=== PATIENT | male | born 1985 | race Caucasian/White ===

== ENCOUNTER → 2021-03-02 | Day surgery (SDC) | payer OTHER ==
[~2021-03-02] MED LIST: CLARITIN10 MG PO; FAMOTIDINE 10 M10 MG PO; PERCOCET 5-3251 EACH PO
--- NOTE | 2021-03-02 19:11 | OP ---
[address] [address] OPERATIVE REPORT Name: ADY VÁZQUEZ Room: [facility].#: [id number] Admission: 03/02/21 Attend Phys: Kevin Novoa Discharge: Date of : 83 Report #: [id number] THIS REPORT FOR: cc: Physician not on staff Physician not on staff Galileo Urias DO ~ DATE OF SURGERY: 03/02/2021 PREOPERATIVE DIAGNOSIS: Pilonidal disease. POSTOPERATIVE DIAGNOSIS: Pilonidal disease. PROCEDURE PERFORMED: Pilonidal cystectomy with Ren lift. SURGEON: Galileo Urias DO CO-SURGEON: Jeremy Jorgensen DO, PGY-5. ANESTHESIA: General. ESTIMATED BLOOD LOSS: 10 mL. SPECIMENS: Pilonidal cyst and pilonidal tract. FINDINGS: pilonidal disease without any evidence of abscess. HISTORY OF PRESENT ILLNESS: The patient is a 35-year-old male with history of pilonidal disease who is seen in the office. He said he has had multiple episodes of recurrent disease. We discussed formal excision in the operating room. Risks, benefits and alternatives discussed at length and he elected to proceed with surgery. DESCRIPTION OF PROCEDURE: After consent was obtained, the patient was taken to the operating room and placed on the prone position with padding in all the correct places. The patient was intubated by the Anesthesia team without any complication prior to prone positioning . SCDs applied to bilateral lower extremities, safety belt placed across the patient's back and legs. Two grams Ancef given for surgical prophylaxis. The gluteal region was prepped and draped in the standard sterile fashion. Time-out was performed confirming the patient and procedure. Pilonidal disease was marked out to plan for surgical excision. A 15 blade scalpel was used to make a ren incision around the pilonidal cyst and the sinus tract off midline to the left. Electrocautery was used for hemostasis and dissected down to the level of the sacral fascia and once the postsacral fascia was encountered, the pilonidal cyst along with the sinus was completely excised and sent for pathologic evaluation. At this point, [place] [address] OPERATIVE REPORT Name: ADY VÁZQUEZ Room: [facility]#: [id number] Admission: 03/02/21 Attend Phys: Kevin Novoa Discharge: Date of : 83 Report #: [id number] subcutaneous tissue on the right side of the patient's wound to create a flap for a Ren lift. The deep tissue was then reapproximated using interrupted sutures of 2-0 Vicryl. A 15-Sinhala Dionisio drain was placed in the subcutaneous space. Superficial dermal layers were then reapproximated with layered closure of 3-0 Vicryl. Skin was reapproximated with interrupted 3-0 nylon in a vertical mattress fashion. Once the wound was completely approximated, sterile dressings were applied and a drain was hooked to negative pressure suction. The patient was then placed in the supine position and awoken from anesthesia and transferred to PACU in stable condition. All needle, instrument and sponge counts were correct x 2 at the end of the case. <ELECTRONICALLY SIGNED> By: Galileo Urias DO 03/02/21 1911 1400 [id number] Urias DO /nt
--- NOTE | 2021-03-05 13:03 | PATH ---
[address] [address] PATHOLOGY RPT PROCEDURE Name: ALY VÁZQUEZ Room: [facility].#: [id number] Admission: 03/02/21 Date of : 83 Discharge: Report #: [id number] Path Case #: [id number] [facility] Accession Number: [id number] . 01 Material submitted: . gluteal cleft - PILONIDAL DISEASE . 01 Clinical history: . PILONDIAL CYST . 02 Diagnosis: Pilonidal disease: - Benign skin with pilonidal sinus/cyst showing entrapped hair, acute and chronic inflammation and fibrosis. . (MINOO:mml; 03/04/2021) QL 03/04/2021 1121 Local . 02 Electronically signed: . Rosalino Blood MD, Pathologist NPI- [id number] . 01 Gross description: . The specimen is received in formalin, labeled "Aly Vázquez, pilonidal disease out at 1402 in formalin at 1406" and consists of an unoriented elliptical skin excision (7.3 x 1.8 cm, excised to a depth of 1.3 cm) which is surfaced with meneses wrinkled skin that displays a swenson-meneses raised well-circumscribed lesion (1.1 x 0.6 cm) that comes to within 0.2 cm of the nearest surgical margin (inked black). Sectioning reveals, directly underlying the lesion, a hemorrhagic and fibrotic, brown material filled simple cyst (1.7 cm in greatest dimension). Beet End Supervisor sections to include the entirety of the lesion are submitted in A1.([place]; 03/03/2021) DKA/EDD 03/04/2021 1120 Local . 02 Pathologist provided ICD-10: L05.91 . 02 CPT . 405435 Specimen Comment: A courtesy copy of this report has been sent to [phone], [phone] Specimen Comment: [id number] Specimen Comment: Report sent to , DR WALTERS Specimen Comment: A duplicate report has been generated due to demographic updates. Performed at: [address] [facility] [address], [place], [place] [address] [place] [address] PATHOLOGY RPT PROCEDURE Name: ALY VÁZQUEZ Room: [facility].#: [id number] Admission: 03/02/21 Date of : 83 Discharge: Report #: [id number] Path Case #: [id number] MD Uziel Omalley MD Phone: [phone] Performed at: [address] [facility] [address], [place], [place] [id number] MD Rosalino Blood MD Phone: [phone]
== END | disposition home or self-care (01) ==
LOC: M.SUR 02-26 12:48
PROVIDERS: ATTEND Surgery
DX: L05.91 Pilonidal cyst without abscess (principal); Z98.890 Other specified postprocedural states; Z20.822 Contact with and (suspected) exposure to COVID-19; Z79.899 Other long term (current) drug therapy